=== PATIENT | male | born 1985 | race Hispanic/Latino ===

== ENCOUNTER 2017-01-17 20:07 | Emergency (ER) | payer SELFPAY ==
[2017-01-17 20:34] VITALS: BP 148/123
--- NOTE | 2017-01-17 22:44 | Emergency Department Report ---
ED Extremity Problem HPI - General Chief complaint: Extremity Problem,Nontraumatic Stated complaint: RIGHT WRIST SWELLING/LIMITED MOBILITY Time Seen by Provider: 01/17/17 22:10 Source: patient Mode of arrival: Ambulatory Limitations: No Limitations - History of Present Illness Initial comments: Patient is a 31 year old male who presents to the ED for complaints of right wrist pain. Relates he has noted some pain and mild swelling to the right wrist since yesterday. Denies any insect bites, falls or any other injuries. Denies any redness, or drainage. Denies any other symptoms. MD Complaint: extremity pain Onset/Timin -: Sudden Location: right, upper extremity History of Same: No -: Yes arthralgia Radiation: none Severity scale (0 -10): 4 Quality: burning, aching Consistency: constant Improves with: nothing Worsens with: nothing Associated Symptoms: denies other symptoms - Related Data Previous Rx's Medication Instructions Recorded Last Taken Type Prednisone [predniSONE 5 mg (6-Day 5 mg PO .TAPER #1 tab.ds.pk 01/18/17 Unknown Rx Pack, 21 Tabs)] Allergies Allergy/AdvReac Type Severity Reaction Status Date / Time No Known Allergies Allergy Verified 01/17/17 20:42 ED Review of Systems ROS: Stated complaint: RIGHT WRIST SWELLING/LIMITED MOBILITY Other details as noted in HPI Constitutional: denies: chills, fever Respiratory: denies: cough, shortness of breath, wheezing Cardiovascular: denies: chest pain, palpitations Musculoskeletal: as per HPI, joint swelling (mild swelling to the right wrist ) , other. denies: back pain, arthralgia Neurological: denies: headache, weakness, paresthesias Psychiatric: denies: anxiety, depression ED Past Medical Hx - Past Medical History Previous Medical History?: Yes Hx Hypertension: Yes Hx Psychiatric Treatment: Yes (BIPOLAR / SCHIZO) - Surgical History Past Surgical History?: Yes Additional Surgical History: EAR - Social History Smoking Status: Current Every Day Smoker Substance Use Type: None - Medications Home Medications: Home Medications Medication Instructions Recorded Confirmed Last Taken Type Prednisone [predniSONE 5 mg (6-Day 5 mg PO .TAPER #1 tab.ds.pk 01/18/17 Unknown Rx Pack, 21 Tabs)] ED Physical Exam - General Limitations: No Limitations General appearance: alert, in no apparent distress - Head Head exam: Present: atraumatic, normocephalic - Respiratory Respiratory exam: Present: normal lung sounds bilaterally. Absent: respiratory distress - Cardiovascular Cardiovascular Exam: Present: regular rate, normal rhythm. Absent: systolic murmur, diastolic murmur, rubs, gallop - Extremities Exam Extremities exam: Present: normal inspection - Expanded Upper Extremity Exam Right Forearm Wrist exam: Present: tenderness. Absent: full ROM (decreased ROM to the right wrist ), swelling, abrasion, laceration, ecchymosis, deformity, crepidus, dislocation, erythema, tenderness over anatomical snuff box, pain with axial thumb loading Hand Wrist exam: Present: normal inspection, full ROM. Absent: tenderness, swelling, abrasion, laceration, ecchymosis, deformity, crepidus, dislocation, erythema, amputation, nail avulsion, subungual hematoma Neuro motor exam: Present: wrist extension intact, thumb opposition intact, thumb IP flexion intact, thumb adduction intact, fingers 2-5 abduction intact Neurosensory exam: Present: radial nerve intact, ulnar nerve intact, median nerve intact Vascular: Present: normal capillary refill. Absent: vascular compromise - Neurological Exam Neurological exam: Present: alert, oriented X3 - Psychiatric Psychiatric exam: Present: normal affect, normal mood ED Course Vital Signs 01/17/17 01/17/17 20:29 20:42 Temperature 98.6 F 98.6 F Pulse Rate 96 H 96 H Respiratory 20 20 Rate Blood Pressure 148/123 Blood Pressure 148/123 [Right] O2 Sat by Pulse 98 98 Oximetry ED Medical Decision Making - Medical Decision Making Xray negative for fractures. Called Lab as they did not have uric acid available for 2 hours and they mentioned that every night the uric acid machine updates and it takes 2 hours to get the results and they mentioned that it will take another 2 hours to get the test back. Spoke to Patient regarding this and states does not want to wait any longer. Will give Decadron in the ED and prescribed prednisone to go home with. Advised patient to call back tomorrow for results. - Differential Diagnosis right wrist pain, right wrist sprain, right wrist injury, gout Critical care attestation.: If time is entered above; I have spent that time in minutes in the direct care of this critically ill patient, excluding procedure time. ED Disposition Clinical Impression: Right wrist pain Disposition: DISCHARGED TO HOME OR SELFCARE Is pt being admited?: No Does the pt Need Aspirin: No Condition: Stable Instructions: Wrist Injury (ED), Arthralgia (ED), Acute Gouty Arthritis (ED), Rheumatoid Arthritis (ED) Prescriptions: Prednisone [predniSONE 5 mg (6-Day Pack, 21 Tabs)] 5 mg PO .TAPER #1 tab.ds.pk Referrals: PRIMARY CARE, [Primary Care Provider] - 3-5 Days TIFFANY HODGES MD [Staff Physician] - 3-5 Days Time of Disposition: 00:08
[2017-01-18] MEDS ORDERED: DECADRON IM ONE (00:05)
--- NOTE | 2017-01-18 08:39 | XRay Report ---
Right wrist 3 views: History: Pain. Findings: No fracture or dislocation. No articular abnormality. Impression: Essentially negative right wrist.
== END 2017-01-18 00:09 | disposition home or self-care (01) ==
LOC: ED 20:07
DX: M25.531 Pain in right wrist (principal); I10 Essential (primary) hypertension; F20.9 Schizophrenia, unspecified; F31.9 Bipolar disorder, unspecified; F17.200 Nicotine dependence, unspecified, uncomplicated; X58.XXXA Exposure to other specified factors, initial encounter; Y93.89 Activity, other specified; Y92.89 Other specified places as the place of occurrence of the external cause; Y99.8 Other external cause status
CPT/HCPCS: 29125; 36415; 73110; 84550; 96372; 99284; J1100

== ENCOUNTER 2019-02-08 00:30 | Emergency (ER) | payer MEDICARE ==
[2019-02-08] MEDS ORDERED: NACL 0.9% 1000 ML 1,000 ML IV ONE (00:40)
[2019-02-08 01:16] LABS: Basophils # (Auto) 0.1 K/mm3 (0.0-0.1); Eosinophils % (Auto) 0.5 % (0.0-4.3); Hematocrit 41.6 % (35.5-45.6); Hemoglobin 14.1 gm/dl (11.8-15.2); Lymphocytes # (Auto) 1.7 K/mm3 (1.2-5.4); Lymphocytes % (Auto) 21.5 % (13.4-35.0); Mean Corpuscular HGB Conc 34 % (32-34); Mean Corpuscular Volume 91 fl (84-94); Monocytes # (Auto) 0.9 K/mm3 (0.0-0.8); Platelet Count 213 K/mm3 (140-440); Red Blood Count 4.58 M/mm3 (3.65-5.03); Red Cell Distribution Width 14.9 % (13.2-15.2)
--- NOTE | 2019-02-08 01:27 | Emergency Department Report ---
ED Psych HPI - General Chief Complaint: Overdose Stated Complaint: ALTERED MENTAL STATUS Time Seen by Provider: 02/08/19 00:40 Source: patient, EMS Mode of arrival: Stretcher - History of Present Illness Initial Comments: Chief complaint: Only took my medications because I was anxious HPI: Mr. Nuñez is a 33-year-old male with history of schizoaffective disorder, bipolar affective disorder, anxiety who presents with intentional overdose. His sister called 911 because he was "acting funny". He was actually discharged from the [facility] yesterday. He stated that he took 7-9 pills which were prescribed to him. Medications include Depakote to be taken at night. Met oprolol twice a day. Trazodone at bedtime. Seroquel to be taken at bedtime. Olanzapine to be taken at bedtime. Risperdaly bedtime dose. Naltrexone to be taken at night. Gabapentin to be taken at bedtime. Mirtazapine to be taken at bedtime he has several bottles of Seroquel at his disposal. All of these medications have been prescribed to him. Unclear if any medications were discontinued or changed during recent psychiatric treatment. He denies suicidal ideation. However he does have a history of intentional overdose and suicide attempt. He told EMS that he took extra medication doses in order to get high. He lives with his sister. Complaint: other (feeling anxious) -: This evening Associated Psychiatric Symptoms: other (anxious) History of same: Yes Improves With: medication Context: new medication(s) - Related Data Previous Rx's Medication Instructions Recorded Last Taken Type Prednisone [predniSONE 5 mg (6-Day 5 mg PO .TAPER #1 tab.ds.pk 01/18/17 Unknown Rx Pack, 21 Tabs)] Allergies Allergy/AdvReac Type Severity Reaction Status Date / Time No Known Allergies Allergy Verified 01/17/17 20:42 ED Review of Systems ROS: Stated complaint: ALTERED MENTAL STATUS Other details as noted in HPI Comment: All other systems reviewed and negative Constitutional: denies: fever, malaise Respiratory: denies: cough Cardiovascular: denies: chest pain ED Past Medical Hx - Past Medical History Previous Medical History?: Yes Hx Hypertension: Yes Hx Psychiatric Treatment: Yes (BIPOLAR / SCHIZOAFFECTIVE ) - Surgical History Past Surgical History?: Yes Additional Surgical History: EAR - Social History Smoking Status: Never Smoker Substance Use Type: Prescribed - Medications Home Medications: Home Medications Medication Instructions Recorded Confirmed Last Taken Type Prednisone [predniSONE 5 mg (6-Day 5 mg PO .TAPER #1 tab.ds.pk 01/18/17 Unknown Rx Pack, 21 Tabs)] ED Physical Exam - General Limitations: Altered Mental Status General appearance: alert, in no apparent distress, other (awake with slurred speech) - Head Head exam: Present: atraumatic, normocephalic - Eye Eye exam: Present: normal appearance - ENT ENT exam: Present: mucous membranes moist - Neck Neck exam: Present: normal inspection, full ROM - Respiratory Respiratory exam: Present: normal lung sounds bilaterally. Absent: respiratory distress, wheezes, rales, rhonchi - Cardiovascular Cardiovascular Exam: Present: regular rate, normal rhythm, normal heart sounds. Absent: systolic murmur, diastolic murmur, rubs, gallop - GI/Abdominal GI/Abdominal exam: Present: soft, normal bowel sounds. Absent: distended, tenderness, guarding, rebound - Rectal Rectal exam: Present: deferred - Extremities Exam Extremities exam: Present: normal inspection - Back Exam Back exam: Present: normal inspection - Neurological Exam Neurological exam: Present: alert, oriented X3 - Psychiatric Psychiatric exam: Present: normal affect, normal mood - Skin Skin exam: Present: warm, dry, intact, normal color. Absent: rash ED Course Vital Signs 02/08/19 02/08/19 02/08/19 00:37 00:41 00:45 Temperature 98.9 F Pulse Rate 83 82 Respiratory 16 16 17 Rate Blood Pressure 130/82 O2 Sat by Pulse 95 95 Oximetry 02/08/19 02/08/19 02/08/19 01:00 01:15 02:34 Temperature Pulse Rate 81 Respiratory 20 Rate Blood Pressure 130/82 134/87 134/87 O2 Sat by Pulse 97 95 99 Oximetry 02/08/19 02/08/19 02/08/19 02:46 03:00 03:15 Temperature Pulse Rate Respiratory Rate Blood Pressure 127/62 134/87 117/76 O2 Sat by Pulse 97 98 95 Oximetry 02/08/19 02/08/19 02/08/19 03:30 03:45 04:00 Temperature Pulse Rate Respiratory Rate Blood Pressure 110/67 105/64 109/70 O2 Sat by Pulse 96 96 95 Oximetry ED Medical Decision Making - Lab Data Result diagrams: 02/08/19 00:55 02/08/19 00:55 - Medical Decision Making Mr. Nuñez provided different accounts of the events tonight to me and EMS. He informed EMS that he desired to get high. However, he told me that he only took the medication as prescribed. He is at risk for altered mental status due to polypharmacy. However, with EMS history and previous SI attempt by overdose, I am concerned for intentional overdose. He stated that he took only 7-9 pills total. Placed on 1013. After 4 hours of observation while on director of cardiac rehabilitation, Mr. Nuñez has been stable without hemodynamic instability. He is medically clear for psychiatric care. Even in spite of obvious sedation, Mr. Nuñez insisted on receiving more medication. Critical Care Time: Yes Critical care time in (mins) excluding proc time.: 40 Critical care attestation.: If time is entered above; I have spent that time in minutes in the direct care of this critically ill patient, excluding procedure time. 40 minutes of critical care time excluding procedures were used in the care of the patient. Patient required multiple assessments and interventions. I reviewed the electronic medical record. I spoke with consultants involved in the care of the patient. ED Disposition Clinical Impression: Drug overdose, multiple drugs, Bipolar disorder, Schizoaffective disorder Disposition: [id number] PSY HOSP/PSY UNIT Is pt being admited?: No Does the pt Need Aspirin: No Condition: Stable
[2019-02-08 01:28] LABS: BUN/Creatinine Ratio 18; Blood Urea Nitrogen 18 mg/dL (9-20); Calcium 8.6 mg/dL (8.4-10.2); Hemolysis Index 26
[2019-02-08 05:21] LABS: Bilirubin,Urine NEG (Negative); Blood,Urine NEG (Negative); Color,Urine Yellow (Yellow); Mucus,Urine FEW /HPF; Protein,Urine <15 mg/dL mg/dL (Negative); Urobilinogen,Urine < 2.0 mg/dL (<2.0); WBC,Urine < 1.0 /HPF (0.0-6.0)
[2019-02-08 05:49] LABS: Amphetamine Screen,Urine PRESUMPTIVE NEGATIVE; Benzodiazepines Screen,Urine PRESUMPTIVE NEGATIVE; Cannabinoid Screen,Urine PRESUMPTIVE NEGATIVE; Cocaine Screen,Urine PRESUMPTIVE NEGATIVE; Opiate Screen,Urine PRESUMPTIVE NEGATIVE
[2019-02-08 06:04] LABS: Methadone Screen,Urine PRESUMPTIVE POSITIVE
--- NOTE | 2019-02-08 13:08 | Consultation ---
History of Present Illness - Reason for Consult Consult date: 02/15/19 Reason for consult: Initial Psychiatric Evaluation - Chief Complaint Chief complaint: " altered mental status" - History of Present Psychiatric Illness Patient is is a 33-year-old male with history of schizoaffective disorder, bipolar affective disorder and anxiety. He presents with intentional overdose. Per record patient's sister called 911 because he was "acting funny". He was actually discharged from the [facility] yesterday. He stated that he took 7-9 pills which were prescribed to him. Today the patient is calm and cooperative during the assessment. Patient reports " I took all of my night time medication so when the president of the transitional home came he said I was slurring my words and called the ambulance. He endorses poor sleep, fair appetite, decrease energy, auditory hallucinations, visual hallucinations, paranoid delusions, intermittent suicidal ideation without a plan. He denies HI's. Current Psychiatric Medications: Depakote 500mg po QAM, 1000mg po QHS, Seroquel 400mg po QHS, Seroquel 50mg po QAM, Restoril 15mg QHS, Clonidine 0.1mg po TID, Lopressor 50mg po BID, Gabapentin 600mg po TID, Zyprexa 20mg po QHS, Trazodone 200mg po QHS. Past Psychiatric Diagnosis: Schizoaffective disorder, bipolar type ( 2018), insomnia (2018) anxiety disorder (2018); More than 20 previous inpatient psychiatric hospitalizations ( [facility], [facility], [place]); outpatient psychiatrist- [facility]/Dr. Leiva ; approximately 20 previous suicide attempt ( holding a gun to head, overdosing). Past Medication Trials: Abilify- ineffective, Vistaril - ineffective, Trazodone- ineffective, Invega Sustenna- ineffective, Haldol- side effects, Geodon- ineffective, Prozac- effective, Remeron- effective. History of Alcohol/ Drug Abuse: Hx Opiate Dependence- $40-50 dollars daily, "snort or shoot it, " last use- " about months ago, " first use- " 3 years ago." Social History: Some College; lives in transitional home/lives alone; Disability- $ 1,271 per month; good support system- " my mother, brother in law, and father, and sister; no pending legal issues. Family History of Psychiatric Illness/Substance Abuse: Father- "schizoaffective disorder and alcohol abuse, " mother " depression and anxiety." Medications and Allergies Allergies Allergy/AdvReac Type Severity Reaction Status Date / Time No Known Allergies Allergy Verified 01/17/17 20:42 Home Medications Medication Instructions Recorded Confirmed Last Taken Type Divalproex Sodium [Depakote] 500 mg PO BID 02/08/19 02/08/19 Unknown History Gabapentin [Neurontin] 600 mg PO BID 02/08/19 02/08/19 Unknown History Metoprolol 50 mg PO BID 02/08/19 02/08/19 Unknown History Mirtazapine [Remeron] 30 mg PO BID 02/08/19 02/08/19 Unknown History OLANZapine [Zyprexa] 20 mg PO BID 02/08/19 02/08/19 Unknown History Quetiapine Fumarate [Seroquel] 50 mg PO QID 02/08/19 02/08/19 Unknown History clonazePAM [Klonopin] 1 mg PO QID 02/08/19 02/08/19 Unknown History risperiDONE [RisperDAL] 3 mg PO BID 02/08/19 02/08/19 Unknown History Mental Status Exam - Vital signs Last Vital Signs Temp 98.2 F 02/08/19 08:09 Pulse 77 02/08/19 08:09 Resp 18 02/08/19 08:09 BP 163/68 02/08/19 08:09 Pulse Ox 98 02/08/19 08:09 - Exam Narrative exam: Mental Status Exam Appearance: calm, cooperative Behavior: regular eye contact Speech: regular rate and tone Mood: "anxious" Affect: appropriate Thought Process: circumstantial Thought Content: denies HI's; + SI's, A/VH's, and delusions Motor Activity: sitting up in the bed Cognition: A/O x 3 Insight: poor Judgment: poor Results Result Diagrams: 02/08/19 00:55 02/08/19 00:55 Abnormal lab results 02/08/19 02/08/19 02/08/19 Range/Units 00:55 00:55 00:55 Ponce % (Auto) 11.0 H (0.0-7.3) % Ponce # 0.9 H (0.0-0.8) K/mm3 Glucose 101 H (75-100) mg/dL Salicylates < 0.3 L (2.8-20.0) mg/dL Acetaminophen (10.0-30.0) ug/mL Valproic Acid 41.4 L (50-100) ug/mL 02/08/19 Range/Units 00:55 Ponce % (Auto) (0.0-7.3) % Ponce # (0.0-0.8) K/mm3 Glucose (75-100) mg/dL Salicylates (2.8-20.0) mg/dL Acetaminophen < 5.0 L (10.0-30.0) ug/mL Valproic Acid (50-100) ug/mL All other labs normal. Assessment and Plan Assessment and plan: Impression: PPHx schizoaffective disorder. Psychosis Unspecified. Today the patient is calm and cooperative during the assessment. UDS positive for methadone. Patient requesting benzodiazepines. Appears to be medication seeking. Recommendation/Plan: 1. Continue 1013. 2. Gain collateral to determine proper disposition. 3. Recommend [facility] protocol for benzodiazepine use. 4. Collect STAT Depakote level. 5. Restart home medications: Zyprexa 5mg po QHS psychosis/mood and Prozac 20mg po QAM depression/anxiety. Discussed metabolic side effects of Zyprexa and possible suicidal ideations/medication induced wale of Prozac. Disposition: The patient has been referred to inpatient psychiatric services. Staffed with Dr. Mixon.
[2019-02-08] MEDS ORDERED: PROzac PO SCH (22:00)
[2019-02-09 08:47] LABS: Alanine Aminotransferase 11 units/L (7-56)
--- NOTE | 2019-02-09 13:18 | Progress Note ---
Subjective - Reason for Consult Consult date: 02/09/19 Reason for consult: Psychiatry Follow-up - Chief Complaint Chief complaint: "I take a lot of pills" 33-year-old male whop presented to the ER for bizarre behavior. Today the patient is adamant that he didn't try to overdose. He stated that he take a lots of pills that is prescribed by a psychiatrist. He continue to state that he is hearing voices. He could not elaborate what the voice are saying when asked. He denies SI/HI's and VH's. He denies any side effects of his medications. Mental Status Exam - Vital signs Last Vital Signs Temp 98 F 02/09/19 12:00 Pulse 78 02/09/19 12:00 Resp 22 02/09/19 12:00 BP 163/128 02/09/19 12:00 Pulse Ox 100 02/09/19 12:00 - Exam Narrative exam: Appearance: calm, cooperative Behavior: regular eye contact Speech: regular rate and tone Mood: "tired" Affect: congruent to mood Thought Process: circumstantial Thought Content: denies SI/HI's and VH's Motor Activity: sitting up in the bed Cognition: A/O x 3 Insight: variable Judgment: variable Assessment and Plan Impression: Unspecified Mood DO with psy features. Today the patient is calm and cooperative during the assessment. UDS positive for methadone. DDx: Schizoaffective DO Recommendation/Plan: Continue 1013, Zyprexa 5 mg PO HS for mood/psychosis, and Prozac 20 mg PQ daily for depression. Discussed possible metabolic side effects of Zyprexa and possible suicidalility/medication induced wale reference Prozac with the patient. Disp: The patient was accepted at [facility] for inpatient psy services. Will staff with Dr Alma Tucker.
[2019-02-09 20:25] VITALS: BP 121/68
== END 2019-02-09 21:15 ==
LOC: ED 00:30
DX: T44.7X2A Poisoning by beta-adrenoreceptor antagonists, intentional self-harm, initial encounter (principal); F41.9 Anxiety disorder, unspecified; I10 Essential (primary) hypertension; F31.9 Bipolar disorder, unspecified; F20.9 Schizophrenia, unspecified; Y92.092 Bedroom in other non-institutional residence as the place of occurrence of the external cause
CPT/HCPCS: 36415; 80048; 80164; 80307; 81001; 82150; 83690; 84075; 84450; 84460; 85025; 96360; 96361; 99285; G0480; J7030; 80320

== ENCOUNTER 2020-03-16 21:48 | Emergency (ER) | payer MEDICARE ==
[2020-03-16 23:03] LABS: Hematocrit 37.3 % (35.5-45.6); Mean Corpuscular HGB Conc 35 % (32-34); Mean Corpuscular Volume 92 fl (84-94); Platelet Count 232 K/mm3 (140-440); Red Blood Count 4.07 M/mm3 (3.65-5.03); Red Cell Distribution Width 15.6 % (13.2-15.2)
--- NOTE | 2020-03-16 23:19 | XRay Report ---
CHEST 2 VIEWS INDICATION / CLINICAL INFORMATION: MAIN: BLL EDEMA; pt brought in from [place] with sitter, c/o bilateral LL edema- 4+ on right, 3+ on le ft-pt noticed swelling yesterday, today c/o pain and redness associtated with swelling. COMPARISON: None available. FINDINGS: SUPPORT DEVICES: None. HEART / MEDIASTINUM: No significant abnormality. LUNGS / PLEURA: No significant pulmonary or pleural abnormality. Pulmonary vascularity is normal. No pneumothorax. ADDITIONAL FINDINGS: No significant additional findings. IMPRESSION: 1. No significant abnormality. Signer Name: Adriana Jacobs MD Signed: 03/16/2020 11:15 PM Workstation Name: [id number]
[2020-03-16 23:28] LABS: Alanine Aminotransferase 42 units/L (7-56); Albumin 4.2 g/dL (3.9-5); BUN/Creatinine Ratio 25; Blood Urea Nitrogen 25 mg/dL (9-20); Hemolysis Index 26
[2020-03-17 00:57] LABS: Bilirubin,Urine NEG (Negative); Blood,Urine NEG (Negative); Color,Urine Yellow (Yellow); Mucus,Urine FEW /HPF; Protein,Urine <15 mg/dL mg/dL (Negative); Urobilinogen,Urine < 2.0 mg/dL (<2.0)
[2020-03-17] MEDS ORDERED: CYCLOBENZAPRINE 10 MG TAB PO ONE (02:41)
--- NOTE | 2020-03-17 03:03 | Emergency Department Report ---
ED Extremity Problem HPI - General Chief complaint: Extremity Injury, Lower Stated complaint: RT LOWER EXTREMITY SWELLING Time Seen by Provider: 03/17/20 02:36 Source: patient Mode of arrival: Ambulatory Limitations: No Limitations - History of Present Illness Initial comments: Patient is a 34-year-old male presents emergency room complaints of bilateral lower extremity edema right greater than left that began 2 days ago. He states that he has associated right calf pain. He states that this occurred once in the past before when he used to be on dialysis approximately 7 months ago but is no longer requiring dialysis. He denies any recent travel or recent surgeries. He denies any erythema, skin changes, shortness of breath, chest pain. He has a past medical history of hypertension and takes metoprolol and bipolar. He denies any allergies to medications. - Related Data Home Medications Medication Instructions Recorded Confirmed Last Taken Divalproex Sodium [Depakote] 500 mg PO BID 02/08/19 02/08/19 Unknown Gabapentin [Neurontin] 600 mg PO BID 02/08/19 02/08/19 Unknown Metoprolol 50 mg PO BID 02/08/19 02/08/19 Unknown Mirtazapine [Remeron] 30 mg PO BID 02/08/19 02/08/19 Unknown OLANZapine [Zyprexa] 20 mg PO BID 02/08/19 02/08/19 Unknown Quetiapine Fumarate [Seroquel] 50 mg PO QID 02/08/19 02/08/19 Unknown clonazePAM [Klonopin] 1 mg PO QID 02/08/19 02/08/19 Unknown risperiDONE [RisperDAL] 3 mg PO BID 02/08/19 02/08/19 Unknown Previous Rx's Medication Instructions Recorded Last Taken Type Apixaban [Eliquis] 5 mg PO BID 30 Days #70 tablet 03/17/20 Unknown Rx Cyclobenzaprine [Flexeril] 10 mg PO BID PRN #20 tablet 03/17/20 Unknown Rx Allergies Allergy/AdvReac Type Severity Reaction Status Date / Time No Known Allergies Allergy Verified 01/17/17 20:42 ED Review of Systems ROS: Stated complaint: RT LOWER EXTREMITY SWELLING Other details as noted in HPI Comment: All other systems reviewed and negative ED Past Medical Hx - Past Medical History Previous Medical History?: Yes Hx Hypertension: Yes Hx Renal Disease: Yes (AKD- 09/2019) Hx Psychiatric Treatment: Yes (BIPOLAR / SCHIZOAFFECTIVE,alcohol abuse,DVT) - Surgical History Past Surgical History?: Yes Additional Surgical History: EAR - Social History Smoking Status: Current Every Day Smoker - Medications Home Medications: Home Medications Medication Instructions Recorded Confirmed Last Taken Type Divalproex Sodium [Depakote] 500 mg PO BID 02/08/19 02/08/19 Unknown History Gabapentin [Neurontin] 600 mg PO BID 02/08/19 02/08/19 Unknown History Metoprolol 50 mg PO BID 02/08/19 02/08/19 Unknown History Mirtazapine [Remeron] 30 mg PO BID 02/08/19 02/08/19 Unknown History OLANZapine [Zyprexa] 20 mg PO BID 02/08/19 02/08/19 Unknown History Quetiapine Fumarate [Seroquel] 50 mg PO QID 02/08/19 02/08/19 Unknown History clonazePAM [Klonopin] 1 mg PO QID 02/08/19 02/08/19 Unknown History risperiDONE [RisperDAL] 3 mg PO BID 02/08/19 02/08/19 Unknown History Apixaban [Eliquis] 5 mg PO BID 30 Days #70 tablet 03/17/20 Unknown Rx Cyclobenzaprine [Flexeril] 10 mg PO BID PRN #20 tablet 03/17/20 Unknown Rx ED Physical Exam - General Limitations: No Limitations General appearance: alert, in no apparent distress - Head Head exam: Present: atraumatic, normocephalic - Eye Eye exam: Present: normal appearance - ENT ENT exam: Present: mucous membranes moist - Respiratory Respiratory exam: Present: normal lung sounds bilaterally. Absent: respiratory distress, wheezes, rales, rhonchi, stridor, chest wall tenderness, accessory muscle use, decreased breath sounds, prolonged expiratory - Cardiovascular Cardiovascular Exam: Present: regular rate, normal rhythm, normal heart sounds. Absent: systolic murmur, diastolic murmur, rubs, gallop - Extremities Exam Extremities exam: Present: other (bilateral non pitting LE edema, right greater than left, right calf ttp, right leg feels tight secondary to edema, neurovasculalry intact bilaterally, no skin changes, no erythema, no increased warmth, no drainage) - Neurological Exam Neurological exam: Present: alert, oriented X3 - Psychiatric Psychiatric exam: Present: normal affect, normal mood - Skin Skin exam: Present: warm, dry, intact ED Course Vital Signs 03/16/20 03/17/20 22:03 05:40 Temperature 98.4 F Pulse Rate 87 70 Respiratory 16 16 Rate Blood Pressure 119/74 Blood Pressure 125/83 [Right] O2 Sat by Pulse 98 99 Oximetry ED Medical Decision Making - Lab Data Result diagrams: 03/16/20 22:44 03/16/20 22:44 Lab Results 03/16/20 03/16/20 03/16/20 Range/Units 22:44 22:44 22:51 WBC 6.9 (4.5-11.0) K/mm3 RBC 4.07 (3.65-5.03) M/mm3 Hgb 13.0 (11.8-15.2) gm/dl Hct 37.3 (35.5-45.6) % MCV 92 (84-94) fl MCH 32 (28-32) pg MCHC 35 H (32-34) % RDW 15.6 H (13.2-15.2) % Plt Count 232 (140-440) K/mm3 Sodium 142 (137-145) mmol/L Potassium 4.3 (3.6-5.0) mmol/L Chloride 103.4 (98-107) mmol/L Carbon Dioxide 26 (22-30) mmol/L Anion Gap 17 mmol/L BUN 25 H (9-20) mg/dL Creatinine 1.0 (0.8-1.5) mg/dL Estimated GFR > 60 ml/min BUN/Creatinine Ratio 25 % Glucose 79 (75-100) mg/dL Calcium 9.0 (8.4-10.2) mg/dL Total Bilirubin < 0.20 (0.1-1.2) mg/dL AST 21 (5-40) units/L ALT 42 (7-56) units/L Alkaline Phosphatase 86 (35-129) units/L NT-Pro-B Natriuret Pep 77.25 (0-450) pg/mL Total Protein 6.5 (6.3-8.2) g/dL Albumin 4.2 (3.9-5) g/dL Albumin/Globulin Ratio 1.8 % Urine Color Yellow (Yellow) Urine Turbidity Clear (Clear) Urine pH 6.0 (5.0-7.0) Ur Specific [place] 1.018 (1.003-1.030) Urine Protein <15 mg/dl (Negative) mg/dL Urine Glucose (UA) Neg (Negative) mg/dL Urine Ketones Tr (Negative) mg/dL Urine Blood Neg (Negative) Urine Nitrite Neg (Negative) Urine Bilirubin Neg (Negative) Urine Urobilinogen < 2.0 (<2.0) mg/dL Ur Leukocyte Esterase Neg (Negative) Urine WBC (Auto) 1.0 (0.0-6.0) /HPF Urine RBC (Auto) 4.0 (0.0-6.0) /HPF Urine Mucus Few /HPF - Radiology Data Radiology results: report reviewed CHEST 2 VIEWS INDICATION / CLINICAL INFORMATION: MAIN: BLL EDEMA; pt brought in from [place] with sitter, c/o bilateral LL edema- 4+ on right, 3+ on left-pt noticed swelling yesterday, today c/o pain and redness associtated with swelling. COMPARISON: None available. FINDINGS: SUPPORT DEVICES: None. HEART / MEDIASTINUM: No significant abnormality. LUNGS / PLEURA: No significant pulmonary or pleural abnormality. Pulmonary va scularity is normal. No pneumothorax. ADDITIONAL FINDINGS: No significant additional findings. IMPRESSION: 1. No significant abnormality. Signer Name: Adriana Jacobs MD Signed: 03/16/2020 11:15 PM Workstation Name: [id number] Transcribed By: Dictated By: Adriana Jacobs MD Electronically Authenticated By: Adriana Jacobs MD Signed Date/Time: 03/16/202314 DD/ 13 TD/TT: DUPLEX DOPPLER LOWER EXTREMITY VEINS, BILATERAL INDICATION: BLE edema, right greater than left. TECHNIQUE: Duplex doppler imaging was performed through the veins of both lower extremities using venous compression and other maneuvers. COMPARISON: None available. FINDINGS: Right Common Femoral vein: Negative. Right Superficial Femoral vein: Negative. Right Popliteal vein: Negative. Right Calf veins: No blood flow could be identified in the right peroneal vein. Patient also complained of severe pain in this location during the exam. Left Common Femoral vein: Negative. Left Superficial Femoral vein: Negative. Left Popliteal vein: Negative. Left Calf veins: Negative. Additional findings: None. IMPRESSION: 1. No blood flow could be identified in the right peroneal vein. It is unclear if this is an old occluded vein versus acute thrombus. Patient did describe extreme tenderness to the technologist in this area during the exam. The remainder of the right lower extremity was negative for DVT.. 2. No sonographic evidence for DVT within the left lower extremity. Signer Name: Adriana Jacobs MD Signed: 03/17/2020 4:11 AM Workstation Name: [id number] Transcribed By: Dictated By: Adriana Jacobs MD Electronically Authenticated By: Adriana Jacobs MD Signed Date/Time: 03/17/20 0411 DD/ 0409 TD/TT: - Medical Decision Making Patient is a 34-year-old male presents emergency room complaints of bilateral lower extremity edema right greater than left that began 2 days ago. He states that he has associated right calf pain. He states that this occurred once in the past before when he used to be on dialysis approximately 7 months ago but is no longer requiring dialysis. He denies any recent travel or recent surgeries. He denies any erythema, skin changes, shortness of breath, chest pain. He has a past medical history of hypertension and takes metoprolol and bipolar. He denies any allergies to medications. Vitals are normal. Labs are normal. Kidney function is normal. BNP is normal. on exam: bilateral non pitting LE edema, right greater than left, right calf ttp, right leg feels tight secondary to edema, neurovasculalry intact bilaterally, no skin changes, no erythema, no increased warmth, no drainage Chest x-ray 1. No significant abnormality. doppler US: 1. No blood flow could be identified in the right peroneal vein. It is unclear if this is an old occluded vein versus acute thrombus. Patient did describe extreme tenderness to the technologist in this area during the exam. The remainder of the right lower extremity was negative for DVT.. 2. No sonographic evidence for DVT within the left lower extremity. Patient has clinical signs and symptoms of a DVT, no signs of cellulitis. Discussed case with Dr. Plasencia, ER attending who states to treat patient with Eliquis for DVT and to have patient follow-up with vascular in the next 2 to 3 days. Discussed all results with patient. Patient given prescription for Eliquis and given a Eliquis prescription savings card for 30-day supply. Patient given his ultrasound report. Advised patient Please take medication as prescribed. Do not drive or operate heavy machinery while taking muscle relaxer. Please follow-up with a vascular surgeon in 2 to 3 days and take the ultrasound report with you. It is very important that you follow-up with the vascular surgeon. Please be careful while taking Eliquis as it is a blood thinner and will thin your blood. If you have a fall and hit your head or cut yourself please present to the emergency room immediately. Critical care attestation.: If time is entered above; I have spent that time in minutes in the direct care of this critically ill patient, excluding procedure time. ED Disposition Clinical Impression: Swelling of both lower extremities, Right calf pain DVT (deep venous thrombosis) Qualifiers: DVT location: lower extremity Affected thrombotic vein of extremity: peroneal Chronicity: acute Laterality: right Qualified Code(s): I82.451 - Acute embolism and thrombosis of right peroneal vein Disposition: TO HOME OR SELFCARE Is pt being admited?: No Does the pt Need Aspirin: No Condition: Stable Instructions: Deep Venous Thrombosis (ED), Leg Edema (ED) Additional Instructions: Please take medication as prescribed. Do not drive or operate heavy [id number] taking muscle relaxer. Please follow-up with a vascular surgeon in 2 to 3 days and take the ultrasound report with you. It is very important that you follow-up with the vascular surgeon. Please be careful while taking Eliquis as it is a blood thinner and will thin your blood. If you have a fall and hit your head or cut yourself please present to the emergency room immediately. Prescriptions: Apixaban [Eliquis] 5 mg PO BID 30 Days #70 tablet Cyclobenzaprine [Flexeril] 10 mg PO BID PRN #20 tablet PRN Reason: Muscle Spasm Referrals: CHIQUIS LEON MD [Staff Physician] - 2-3 Days [facility] [Provider Group] - 2-3 Days Time of Disposition: 05:22 Print Language: SWEDISH
--- NOTE | 2020-03-17 04:16 | Vascular Lab Report ---
DUPLEX DOPPLER LOWER EXTREMITY VEINS, BILATERAL INDICATION: BLE edema, right greater than left. TECHNIQUE: Duplex doppler imaging was performed through the veins of both lower extremities using venous baltazar akua and other maneuvers. COMPARISON: None available. FINDINGS: Right Common Femoral vein: Negative. Right Superficial Femoral vein: Negative. Right Popliteal vein: Negative. Right Calf veins: No blood flow could be identified in the right peroneal vein. Patient also complain ed of severe pain in this location during the exam. Left Common Femoral vein: Negative. Left Superficial Femoral vein: Negative. Left Popliteal vein: Negative. Left Calf veins: Negative. Additional findings: None. IMPRESSION: 1. No blood flow could be identified in the right peroneal vein. It is unclear if this is an old occl uded vein versus acute thrombus. Patient did describe extreme tenderness to the technologist in this area during the exam. The remainder of the right lower extremity was negative for DVT.. 2. No sonographic evidence for DVT within the left lower extremity. Signer Name: Adriana Jacobs MD Signed: 03/17/2020 4:11 AM Workstation Name: [id number]
[2020-03-17 06:34] VITALS: BP 125/83
== END 2020-03-17 09:10 | disposition home or self-care (01) ==
LOC: ED 21:48
DX: I82.451 Acute embolism and thrombosis of right peroneal vein (principal); R22.42 Localized swelling, mass and lump, left lower limb; I10 Essential (primary) hypertension; F25.8 Other schizoaffective disorders; F31.9 Bipolar disorder, unspecified; F17.200 Nicotine dependence, unspecified, uncomplicated
CPT/HCPCS: 36415; 71046; 80053; 81001; 83880; 85027; 93970

== ENCOUNTER 2020-03-19 09:03 | Emergency (ER) | payer MEDICARE ==
--- NOTE | 2020-03-19 10:46 | Emergency Department Report ---
ED General Adult HPI - General Chief complaint: Extremity Injury, Upper Stated complaint: SWOLLEN LOW EXTREMITIES Time Seen by Provider: 03/19/20 10:07 Source: patient Mode of arrival: Ambulatory Limitations: No Limitations - History of Present Illness Initial comments: 34-year-old male with history of hypertension, DVT, bipolar disorder, schizoaffective disorder presents to ED with complaint of extremity swelling. Patient was seen 3 days ago and diagnosed with a right lower extremity DVT and placed on Eliquis. At that time patient was also having swelling in the left leg, however ultrasound was negative for DVT. Patient states he has been taking his Eliquis as prescribed. Patient presents today reporting swelling in bilateral hands. He denies any shortness of breath, cough, chest pain. Patient states he was previously on dialysis, however he does not remember how long ago that was. He is no longer on dialysis. -: days(s) (3) Location: left, right, upper extremity, lower extremity Consistency: constant Improves with: none Worsens with: none Associated Symptoms: denies: chest pain, shortness of breath - Related Data Home Medications Medication Instructions Recorded Confirmed Last Taken Divalproex Sodium [Depakote] 500 mg PO BID 02/08/19 02/08/19 Unknown Gabapentin [Neurontin] 600 mg PO BID 02/08/19 02/08/19 Unknown Metoprolol 50 mg PO BID 02/08/19 02/08/19 Unknown Mirtazapine [Remeron] 30 mg PO BID 02/08/19 02/08/19 Unknown OLANZapine [Zyprexa] 20 mg PO BID 02/08/19 02/08/19 Unknown Quetiapine Fumarate [Seroquel] 50 mg PO QID 02/08/19 02/08/19 Unknown clonazePAM [Klonopin] 1 mg PO QID 02/08/19 02/08/19 Unknown risperiDONE [RisperDAL] 3 mg PO BID 02/08/19 02/08/19 Unknown Previous Rx's Medication Instructions Recorded Last Taken Type Apixaban [Eliquis] 5 mg PO BID 30 Days #70 tablet 03/17/20 Unknown Rx Cyclobenzaprine [Flexeril] 10 mg PO BID PRN #20 tablet 03/17/20 Unknown Rx Allergies Allergy/AdvReac Type Severity Reaction Status Date / Time No Known Allergies Allergy Verified 01/17/17 20:42 ED Review of Systems ROS: Stated complaint: SWOLLEN LOW EXTREMITIES Other details as noted in HPI Comment: All other systems reviewed and negative Constitutional: denies: fever Respiratory: denies: shortness of breath Cardiovascular: denies: chest pain Musculoskeletal: other (reports edema to bilateral hands and lower extremities) ED Past Medical Hx - Past Medical History Previous Medical History?: Yes Hx Hypertension: Yes Hx Renal Disease: Yes (AKD- 09/2019) Hx Psychiatric Treatment: Yes (BIPOLAR / SCHIZOAFFECTIVE,alcohol abuse,DVT) - Surgical History Past Surgical History?: Yes Additional Surgical History: EAR - Social History Smoking Status: Current Every Day Smoker Substance Use Type: None - Medications Home Medications: Home Medications Medication Instructions Recorded Confirmed Last Taken Type Divalproex Sodium [Depakote] 500 mg PO BID 02/08/19 02/08/19 Unknown History Gabapentin [Neurontin] 600 mg PO BID 02/08/19 02/08/19 Unknown History Metoprolol 50 mg PO BID 02/08/19 02/08/19 Unknown History Mirtazapine [Remeron] 30 mg PO BID 02/08/19 02/08/19 Unknown History OLANZapine [Zyprexa] 20 mg PO BID 02/08/19 02/08/19 Unknown History Quetiapine Fumarate [Seroquel] 50 mg PO QID 02/08/19 02/08/19 Unknown History clonazePAM [Klonopin] 1 mg PO QID 02/08/19 02/08/19 Unknown History risperiDONE [RisperDAL] 3 mg PO BID 02/08/19 02/08/19 Unknown History Apixaban [Eliquis] 5 mg PO BID 30 Days #70 tablet 03/17/20 Unknown Rx Cyclobenzaprine [Flexeril] 10 mg PO BID PRN #20 tablet 03/17/20 Unknown Rx ED Physical Exam - General Limitations: No Limitations General appearance: alert, in no apparent distress - Head Head exam: Present: atraumatic, normocephalic - Eye Eye exam: Present: normal appearance, EOMI - ENT ENT exam: Present: mucous membranes moist - Neck Neck exam: Present: normal inspection - Respiratory Respiratory exam: Present: normal lung sounds bilaterally. Absent: respiratory distress - Cardiovascular Cardiovascular Exam: Present: regular rate, normal rhythm - GI/Abdominal GI/Abdominal exam: Present: soft. Absent: distended, tenderness - Extremities Exam Extremities exam: Present: other (RLE larger than left; both w/nonpitting edema; 1+ nonpitting edema to bilateral hands) - Neurological Exam Neurological exam: Present: alert, oriented X3, CN II-XII intact. Absent: motor sensory deficit - Psychiatric Psychiatric exam: Present: normal affect, normal mood - Skin Skin exam: Present: warm, dry, intact, normal color ED Course Vital Signs 03/19/20 03/19/20 09:12 11:40 Temperature 98.2 F Pulse Rate 96 H 80 Respiratory 20 16 Rate Blood Pressure 111/69 Blood Pressure 115/49 [Left] O2 Sat by Pulse 96 95 Oximetry ED Medical Decision Making - Lab Data Result diagrams: 03/19/20 10:52 03/19/20 10:52 - Medical Decision Making Renal function, liver enzymes, BNP all within normal limits. Vitals are normal and stable. Patient has 1st appt w/ new PCP in 4 days. Pt currently on several BP meds, explained that PCP may possibly be able to add a diuretic. I will not be adjusting his medications at this time since he does have an upcoming appt. Will d/c home. Return precautions given. - Differential Diagnosis renal failure, CHF, liver failure Critical care attestation.: If time is entered above; I have spent that time in minutes in the direct care of this critically ill patient, excluding procedure time. ED Disposition Clinical Impression: Edema of extremities Disposition: - TO HOME OR SELFCARE Is pt being admited?: No Condition: Stable Instructions: Leg Edema (ED) Referrals: PRIMARY CARE, [Primary Care Provider] - 3-5 Days Time of Disposition: 11:35
[2020-03-19 11:11] LABS: Basophils % (Auto) 0.5 % (0.0-1.8); Eosinophils # (Auto) 0.1 K/mm3 (0.0-0.4); Eosinophils % (Auto) 1.3 % (0.0-4.3); Hematocrit 38.8 % (35.5-45.6); Hemoglobin 13.4 gm/dl (11.8-15.2); Lymphocytes # (Auto) 1.5 K/mm3 (1.2-5.4); Lymphocytes % (Auto) 15.7 % (13.4-35.0); Mean Corpuscular HGB Conc 35 % (32-34); Mean Corpuscular Volume 91 fl (84-94); Monocytes # (Auto) 1.1 K/mm3 (0.0-0.8); Monocytes % (Auto) 11.2 % (0.0-7.3); Platelet Count 215 K/mm3 (140-440); Red Blood Count 4.27 M/mm3 (3.65-5.03); Red Cell Distribution Width 15.3 % (13.2-15.2)
[2020-03-19 11:28] LABS: Alanine Aminotransferase 19 units/L (7-56); Albumin 3.9 g/dL (3.9-5); BUN/Creatinine Ratio 15; Blood Urea Nitrogen 16 mg/dL (9-20); Calcium 9.1 mg/dL (8.4-10.2); Hemolysis Index 10
[2020-03-19 11:33] LABS: Bilirubin,Direct < 0.2 mg/dL (0-0.2)
[2020-03-19 11:43] VITALS: BP 115/49
== END 2020-03-19 12:22 | disposition home or self-care (01) ==
LOC: ED 09:03
DX: R60.0 Localized edema (principal); I10 Essential (primary) hypertension; F20.9 Schizophrenia, unspecified; F31.9 Bipolar disorder, unspecified; F17.200 Nicotine dependence, unspecified, uncomplicated; Z87.448 Personal history of other diseases of urinary system; Z98.890 Other specified postprocedural states; Z79.899 Other long term (current) drug therapy
CPT/HCPCS: 36415; 80048; 80076; 83880; 85025; 99283